=== PATIENT | female | born 2000 | race Caucasian/White ===

== ENCOUNTER 2023-04-04 06:20 | Inpatient (IN) ==
[2023-04-04] MEDS ORDERED: NUBAIN INJ 20 MG AMP IVP PRN (06:27)
[2023-04-04] MEDS ORDERED: REGLAN INJ 10 MG VIAL IVP PRN (06:27)
[2023-04-04] MEDS ORDERED: PITOCIN IVP ONE (06:27)
[2023-04-04] MEDS ORDERED: ZOFRAN INJ 4 MG VIAL IVP PRN (06:27)
[2023-04-04] MEDS ORDERED: STADOL INJ IVP PRN (06:27)
[2023-04-04] MEDS ORDERED: D5 LR + PITOCIN 10 UNITS/L 10 UNITS/1,000 ML BAG IV PRN (06:27)
[2023-04-04] MEDS ORDERED: D5 1/2 NS 1,000 ML 1,000 ML IV SCH (06:27)
[2023-04-04] MEDS ORDERED: BETADINE SOLN ONE (06:34)
[2023-04-04] MEDS ORDERED: D5 1/2 NS 1,000 mL + PITOCIN 20 UNITS/L IV 20 UNITS/1,000 ML BAG IV ONE (06:34)
--- NOTE | 2023-04-04 07:14 | DR.OB ---
OB Quick Note - Assessment/Plan Assessment/Plan: L&D 04/04/23 at 6:55am S-No complaint. O-Afebrile,VSS URJ=[id number] with good LTV, +accel, no decel. CTX=mild uterine irritability CVX=2cm/50%/-1/VTX AROM with clear fluid. IUPC and FSE placed. A-IUP at 39 0/7 weeks for induction P-Begin pitocin induction Anticipate
[2023-04-04] MEDS ORDERED: LR 1,000 ML IV 1,000 ML IV ONE ×2 (08:50→08:54)
[2023-04-04] MEDS ORDERED: NAROPIN EPIDURAL 0.2% 100 ML ONE (08:50)
[2023-04-04] MEDS ORDERED: FENTANYL VIAL INJ 100 mcg ONE ×2 (08:50→08:51)
[2023-04-04] MEDS ORDERED: ZOFRAN INJ 4 MG VIAL ONE (09:00)
[2023-04-04] MEDS: D5 1/2 NS 1,000 ML 1,000 ML with PITOCIN 20 UNITS IV SCH ×2 (13:54)
[2023-04-04] MEDS ORDERED: MOTRIN TAB 800 MG PO PRN (14:06)
[2023-04-04 14:36] VITALS: RESP 18
[2023-04-04] MEDS ORDERED: DERMOPLAST PAIN RELIEF SPRAY TOP PRN (15:11)
[2023-04-04] MEDS ORDERED: AMBIEN PO PRN (15:11)
[2023-04-04] MEDS ORDERED: MILK OF MAGNESIA PO PRN (15:11)
[2023-04-04] MEDS ORDERED: ADACEL or BOOSTRIX TDaP VACCINE IM ONE ×2 (15:11→19:52)
--- NOTE | 2023-04-04 16:56 | DR.OB ---
OB Quick Note - Assessment/Plan Assessment/Plan: Delivery Note [employer] 04/04/23 at 13:50 Patient complete and pushing. Head delivered over intact perineum. Nuchal cord x 1 reduced. Nose and mouth bulb suctioned. Body delivered over intact perineum. Cord clamped x 2 and cut. Infant handed to attedants. Cord sent for gases. Placenta delivered spontaneously / intact / 3 vessel cord. No CVX tears. A small midline second degree tear noted and repaired with 0-vicryl in usual fashion. Viable male delivered by , VTX/OA, wt=8'5" and 8/9, stable to NBN. Mother stable to RR. [id number].
[2023-04-05 05:04] LABS: HEMATOCRIT 28.1 % (36.0-47.0); HEMOGLOBIN 9.3 g/dL (12.0-16.0)
[2023-04-05] MEDS ORDERED: EMLA CREAM ONE (07:08)
[2023-04-05] MEDS ORDERED: TYLENOL ELIXIR 325 MG UDC ONE (07:08)
[2023-04-05] MEDS: D5 1/2 NS 1,000 ML 1,000 ML with PITOCIN 20 UNITS IV SCH ×2 (07:39)
[2023-04-05] MEDS ORDERED: PRENATAL PLUS PO SCH (09:00)
[2023-04-05 12:13] VITALS: BP 114/66; PULSE 91; TEMP 99.2; O2SAT 97
== END 2023-04-05 16:20 | disposition home or self-care (01) | DRG 807 ==
LOC: LD 06:20 → MED/SURG 15:18
PROVIDERS: ADMIT Specialist; ATTEND Specialist
DX: O70.1 Second degree perineal laceration during delivery; O26.893 Other specified pregnancy related conditions, third trimester; O98.311 Other infections with a predominantly sexual mode of transmission complicating pregnancy, first trimester; Z37.0 Single live birth; Z3A.39 39 weeks gestation of pregnancy